=== PATIENT | male | born 1970 | race Caucasian/White ===

== ENCOUNTER 2024-06-22 17:21 | Emergency (ER) | payer BC ==
[2024-06-22] MEDS ORDERED: Lidocaine 1% 5 ML VIAL INFILT ONE (17:22)
== END 2024-06-22 18:00 | disposition home or self-care (01) ==
LOC: FB.ED 17:21
DX: S51.811A Laceration without foreign body of right forearm, initial encounter (principal); W26.8XXA Contact with other sharp object(s), not elsewhere classified, initial encounter; Y93.89 Activity, other specified
CPT/HCPCS: 12002; 99282